=== PATIENT | male | born 1970 | race Two or more races ===

== ENCOUNTER → 2019-03-14 | Outpatient (CLI) | payer OTHER ==
--- NOTE | 2019-03-14 15:25 | RAD ---
Renal ultrasound without comparison for gross hematuria. Technique and findings: Real-time grayscale and color Doppler evaluation of the kidneys and urinary bladder is performed. The right kidney measures 9.9 x 4.3 x 5.8 cm and is free of hydronephrosis or focal parenchymal abnormality. The left kidney measures 10.9 x 5.7 x 4.6 cm and is also free of hydronephrosis. There is a heterogeneous hyperdense poorly circumscribed parenchymal mass at the midpole of the left kidney measuring 4.8 x 3.6 x 4.0 cm with internal color flow. This could represent neoplasm or a prominent involution of the cortex. At the upper pole there is a mixed cystic and solid appearing lesion measuring 1.9 x 1.7 x 1.6 cm which is suspicious for renal neoplasm. Further evaluation with MRI is recommended for more definitive characterization of these lesions. The urinary bladder is largely decompressed, and ureteral jets are not identified. Prevoid volume of 49.2 ml is reduced to postvoid validated 10.7 ml. IMPRESSION: 1. 2 left renal masses, the largest which measures 4.8 at the midpole and may be renal neoplasm versus prominent cortex. The second nodule is smaller but more definitively suspicious at the upper pole measuring 1.9 cm. Further evaluation MRI is recommended for definitive characterization. Electronically signed by: Andrew Castro MD (03/14/2019 3:22 PM) [id number]
== END | disposition home or self-care (01) ==
LOC: US 07:32
PROVIDERS: ATTEND Urology
DX: N28.89 Other specified disorders of kidney and ureter (principal)
CPT/HCPCS: 76770

== ENCOUNTER → 2019-07-10 | Outpatient (CLI) | payer OTHER ==
[2019-07-10] MEDS: IOHEXOL 300 MG/ML 75 ML VIAL. IV ONE (08:47)
--- NOTE | 2019-07-10 09:20 | RAD ---
Examination: CT ABDOMEN WO/W CONTRAST History: Left renal neoplasm Comparison/Correlation: 03/14/2019 renal ultrasound exam Findings: Axial images of the abdomen were obtained prior to and following IV contrast according to renal protocol. This includes arterial phase, nephrographic phase, and excretory phase images. Sagittal and coronal reformatted images were provided. Visualized lung bases are clear. Liver, spleen, pancreas, and adrenal glands are normal. Gallbladder fossa is unremarkable. No biliary dilatation. Symmetric renal perfusion and excretion is noted. Renal contours are normal. There is no abnormal enhancement to suggest mass or inflammatory process. No radiopaque renal or proximal to mid ureteral collecting system calculi. No ascites. No enlarged abdominal lymph nodes. Subtle levo convexity of the lower lumbar spine is evident with moderate multilevel disc space narrowing of the lumbar spine. Visualized aorta is unremarkable. There are 2 right renal arteries. The larger of the 2 right renal arteries is more superior location. Single left main renal arteries present. No significant stenoses evident. Celiac and superior mesenteric arteries are. Inferior mesenteric artery opacifies with contrast and is unremarkable. Impression: No renal mass or other suspicious finding. The finding in question on ultrasound examination involving the left kidney corresponds to a dromedary hump. No left renal superior pole mass corresponds with the finding reported on ultrasound exam. Findings ultrasound exam at the left renal pole is presumably artifactual. PQRS Compliance Statement: One or more of the following individualized dose reduction techniques were utilized for this examination: 1. Automated exposure control 2. Adjustment of the mA and/or kV according to patient size 3. Use of iterative reconstruction technique Electronically signed by: Ti Eaton MD (07/10/2019 9:17 AM) [id number]
== END ==
LOC: CT 08:03
PROVIDERS: ATTEND Urology
DX: D41.02 Neoplasm of uncertain behavior of left kidney (principal)
CPT/HCPCS: 74170; Q9967